=== PATIENT | female | born 1985 | race Two or more races ===

== ENCOUNTER 2016-11-22 20:26 | Emergency (ER) | payer MEDICAID ==
--- NOTE | ~2016-11-22 | ER ---
[facility]: [facility] AGE: 30 Y [address] ROOM: [place] [id number] LOCATION: [facility] ADMIT DATE: 11/22/2016 ER/Outpatient Report DISCHARGE DATE: 11/22/2016 FAMILY PHYSICIAN: Mary Webster MD ATTENDING PHYSICIAN: Billy Bae Time of arrival: 2028 hours. Time of exam: 2038 hours. CHIEF COMPLAINT: Fever. HISTORY OF PRESENT ILLNESS: The patient states she started running a fever last night. Fever has been high of 103. She did last take ibuprofen at 2 o'clock today. Has had a cough. Has vomited twice today. Denies any diarrhea. Denies any pain with urination. Denies having a headache. She states she went to [facility]. They were concerned that she may have mastitis and referred her here to the ER. She denies having any breast tenderness. She is currently breast-feeding and has been breast-feeding since June. ALLERGIES: SHE HAS NO KNOWN ALLERGIES. CURRENT MEDICATIONS: Include vitamins. PAST MEDICAL HISTORY: Benign. PAST SURGICAL HISTORY: Breast augmentation. SOCIAL HISTORY: Denies use of tobacco, drugs, or alcohol. States no other members of her family are ill at this time. REVIEW OF SYSTEMS: All negative other than those mentioned in the HPI. PHYSICAL EXAMINATION: VITAL SIGNS: She weighs 67.8 kg. Blood pressure is 130/94, pulse of 139, respirations 20, temperature of 102.3 tympanic, and O2 saturation is 96% on room air. GENERAL: She is awake, alert, and oriented x4. PAT[facility]: [facility] AGE: 30 Y [address] ROOM: [place], [place] [address] LOCATION: [facility] ADMIT DATE: 11/22/2016 ER/Outpatient Report DISCHARGE DATE: 11/22/2016 FAMILY PHYSICIAN: Mary Webster MD ATTENDING PHYSICIAN: Billy Bae SKIN: Piru, warm, and dry. RESPIRATIONS: Even and nonlabored. HEENT: TMs were clear. Nasal is clear. Oropharynx is red posteriorly. NECK: Supple. No lymphadenopathy. LUNGS: Lung sounds were clear throughout. HEART: Regular rate and tachycardic. BREASTS: Even in size. No redness is noted. Generalized discomfort with palpation. No abnormalities are felt. ABDOMEN: Soft, nondistended. Bowel sounds are present. EMERGENCY DEPARTMENT COURSE: Saline lock was initiated. Fluids of normal saline were started. The patient was given ibuprofen 800 mg p.o. Lab work was drawn. CBC is within normal limits. White count was 10.9. ANC was elevated at 8.6. Chem panel is within normal limits. Lactate was 1.6. Procalcitonin was less than 0.5. Rapid strep screen was negative. Fever did come down with the ibuprofen to 100.1 tympanic, heart rate came down to 117, blood pressure remained stable, and O2 sats remained greater than 95% during the visit. IMPRESSION: Viral illness. PLAN: Home, rest, fluids. Tylenol or ibuprofen for fever or discomfort. If symptoms persist, she is to follow up with her primary provider in the next 2 to 3 days or return to the ER. She verbalized understanding. ANTHONY MANJARREZ APRN FOR MD [facility]ST[facility] POLLACK/evan /[id number] d: 11/23/16 0159 t: 12/05/16 0823, OUTPATIENT REPORT
[~2016-11-22 20:26] MED LIST: ACETAMINOPHEN325 MG PO; DERMOPLAST SPRA56 GM TOP; FEOSOL325 MG PO; MOTRIN800 MG PO; PRENATAL 1+1)(P1 TAB PO; SURFAK240 MG PO
[2016-11-22 20:58] LABS: BASOPHIL % 0.1 %; EOSINOPHIL % 0.1 %; HEMATOCRIT 39.1 % (33.0-46.0); HEMOGLOBIN 13.1 g/dL (11.0-15.0); IMMATURE GRANULOCYTE % 0.4 %; LYMPHOCYTE % 9.4 %; MCH 29.2 pg (27.0-34.0); MCHC 33.5 gm/dL (32.0-36.5); MCV 87.1 fl (83.0-98.0); MONOCYTE # 1.2 K/uL (0.0-1.0); MONOCYTE % 10.9 %; MPV 9.6 fl (9.4-12.4); NEUTROPHIL # (ANC) 8.6 K/uL (1.8-7.8); NEUTROPHIL % 79.1 %; NRBC % 0 /100WBC (0-0.00); PLATELET COUNT 162 K/uL (150-450); RDW-CV 12.8 % (11.9-14.6); WBC 10.9 K/uL (4.0-11.0)
[2016-11-22 21:07] LABS: RBC 4.49 M/uL (3.50-5.00)
[2016-11-22 21:14] LABS: ALBUMIN 3.6 gm/dL (3.5-5.0); ALK PHOS 81 IU/L (33-138); ALT 16 IU/L (12-78); ANION GAP 13.6 (10.0-19.0); AST 12 IU/L (10-40); BLOOD UREA NITROGEN 17 mg/dL (6-24); CALCIUM 8.4 mg/dL (8.5-10.5); CHLORIDE 105 mMol/L (96-110); CO2 24 mMol/L (22-32); CREATININE 0.8 mg/dL (0.5-1.1); ESTIMATED GFR (MDRD EQUATION) > 60; POTASSIUM 3.6 mMol/L (3.7-5.1); SODIUM 139 mMol/L (135-145); TOTAL BILIRUBIN 0.3 mg/dL (0.0-1.5); TOTAL PROTEIN 7.4 g/dL (6.0-8.4)
== END 2016-11-22 21:55 | disposition disaster alternative care site (69) ==
LOC: GMED 20:26
PROVIDERS: Nurse Practitioner Family
DX: B34.9 Viral infection, unspecified (principal)
CPT/HCPCS: J7030

== ENCOUNTER → 2016-12-26 | Outpatient (CLI) | payer MEDICAID | LOC: LKCL 17:38 | DX: Z12.4 Encounter for screening for malignant neoplasm of cervix (principal) | CPT/HCPCS: G0145 ==